=== PATIENT | female | born 1960 | race African-American/Black ===

== ENCOUNTER 2018-06-20 07:05 | Day surgery (SDC) | payer MEDICARE ==
[~2018-06-20] VITALS: Ht 170.2 cm; Wt 94.8 kg
[~2018-06-20 07:05] MED LIST: ALTACE; ALTACE10 MG OR; ASPIRIN EC81 MG PO; ATORVASTATIN CA40 MG PO; BAYER ASA325 MG PO; BAYER ASPIRIN E81 MG PO; CALCIUM1250 MG PO; CARAFATE PO; DIAZEPAM5 MG PO; DIGOXIN0.25 MG PO; FLUOXETINE20 MG PO; HYDROXYCHLOR200 M1 PO; LANOXIN0.25 MG OR; LEXAPRO5 MG OR; LODINE XL400 MG OR; LORTAB5 PO; LOSARTAN/HCT1 TA1 PO; MELOXICAM15 MG PO; METOPROL TAR25 MG PO; NAPROSYN500 MG OR; NEURONTIN300 MG PO; NORCO1 TA1 PO; PRAVASTATIN40 MG PO; PROTONIX40 M2 PO; SIMVASTATIN40 MG OR; SULFASALAZIN500 M1 PO; TOPROL XL OR; TOPROL XL100 MG PO; TOPROL XL50 MG OR; XANAX0.25 MG PO; digoxin
[2018-06-20 09:36] VITALS: BP 126/81
== END 2018-06-20 09:53 | disposition home or self-care (01) ==
LOC: ENDO 07:05 → ORM 09:45 → ENDO 09:53
PROVIDERS: ATTEND Internal Medicine Gastroenterology
PROC: 0DBM8ZX Excision of Descending Colon, Via Natural or Artificial Opening Endoscopic, Diagnostic (ICD-10-PCS; principal; 2018-06-20)
PROC: 0DBL8ZX Excision of Transverse Colon, Via Natural or Artificial Opening Endoscopic, Diagnostic (ICD-10-PCS; 2018-06-20)
PROC: 0DBN8ZX Excision of Sigmoid Colon, Via Natural or Artificial Opening Endoscopic, Diagnostic (ICD-10-PCS; 2018-06-20)
PROC: 0DB78ZX Excision of Stomach, Pylorus, Via Natural or Artificial Opening Endoscopic, Diagnostic (ICD-10-PCS; 2018-06-20)
DX: K57.31 Diverticulosis of large intestine without perforation or abscess with bleeding (principal); D12.4 Benign neoplasm of descending colon; D12.5 Benign neoplasm of sigmoid colon; D12.3 Benign neoplasm of transverse colon; K64.4 Residual hemorrhoidal skin tags; K64.8 Other hemorrhoids; K29.51 Unspecified chronic gastritis with bleeding; K29.81 Duodenitis with bleeding; K21.9 Gastro-esophageal reflux disease without esophagitis; Q40.8 Other specified congenital malformations of upper alimentary tract; I10 Essential (primary) hypertension; I49.9 Cardiac arrhythmia, unspecified; Z79.899 Other long term (current) drug therapy

== ENCOUNTER 2018-07-25 17:53 | Observation (INO) | payer MEDICARE ==
[~2018-07-25] VITALS: Ht 170.2 cm; Wt 92.0 kg
--- NOTE | 2018-07-25 18:08 | NUR ---
PT TO ROOM VIA WHEELCHAIR.
[2018-07-25] MEDS ORDERED: GABAPENTIN100 MG PO (18:18)
[2018-07-25] MEDS ORDERED: LOSARTAN POTASS50 MG PO (18:18)
--- NOTE | 2018-07-25 19:02 | NUR ---
PT RESTING QUIETLY ON STRETCHER, WARM BLANKET GIVEN, CALL LIGHT WITHIN REACH.
[2018-07-25 19:24] LABS: HEMATOCRIT 40.6 % (37.0-47.0); HEMOGLOBIN 13.2 g/dl (12.0-16.0); IMMATURE GRANULOCYTES 0.4 % (0.0-5.0); MEAN CELL VOLUME 85.5 fL CALC (80.0-100.0); MEAN CORPUSCULAR HGB 27.8 pG CALC (26.0-32.0); MEAN CORPUSCULAR HGB CONC 32.5 g/L CALC (32.0-36.0); NEUT# 9.15 thou/uL (2.00-7.15); RED BLOOD COUNT 4.75 mill/uL (4.20-5.60); RED CELL DISTRI WIDTH 14.3 % (11.5-15.5)
[2018-07-25 19:32] LABS: ALBUMIN 4.1 g/dL (3.2-5.0); ALKALINE PHOSPHATASE 126 u/l (38-126); ANION GAP 13 (6-22 (CALC)); BILIRUBIN, TOTAL 0.6 mg/dL (0.0-1.4); BUN 8 mg/dL (7-17); BUN/CREATININE RATIO 11 (12-20 (CALC)); CARBON DIOXIDE 25 mmol/l (22-30); CHLORIDE 107 mmol/l (95-108); CREATININE 0.7 mg/dL (0.5-1.0); GFR > 60 ML/MIN (>=60 (CALC)); GFR FOR AFR.AMER. > 60 ML/MIN (>=60 (CALC)); LIPASE 213 u/l (23-300); POTASSIUM 3.4 mmol/l (3.5-5.1); SGOT/AST 28 u/l (14-36); SODIUM 142 mmol/l (137-146); TOTAL PROTEIN 7.9 g/dL (6.3-8.2)
[2018-07-25 19:35] LABS: URINE BILIRUBIN - DIPSTICK NEGATIVE (NEGATIVE); URINE BLOOD DIPSTICK NEGATIVE (NEGATIVE); URINE CLARITY CLEAR; URINE COLOR YELLOW; URINE GLUCOSE - DIPSTICK NEGATIVE (NEGATIVE); URINE KETONE NEGATIVE (NEGATIVE); URINE LEUK ESTERASE NEGATIVE (NEGATIVE); URINE NITRITE - DIPSTICK NEGATIVE (Negative); URINE PH 5.5 (4.5-8.0); URINE PROTEIN - DIPSTICK NEGATIVE (NEG-TRACE); URINE UROBILINOGEN - DIPSTICK 0.2 E.U./dL (0.2)
--- NOTE | 2018-07-25 20:52 | NUR ---
ADVISED OF CONTINUED WAIT TIME FOR CT SCAN RESULTS. NO VOMITING, NO DIARRHEA SINCE ARRIVAL
--- NOTE | 2018-07-25 21:52 | NUR ---
REPORT GIVEN TO JAMEL FOR CONTINUATION OF CARE
--- NOTE | 2018-07-25 21:56 | NUR ---
PT TO FLOOR PER STRETCHER
--- NOTE | 2018-07-25 22:00 | NUR ---
PT ADMITTED TO FLOOR AT 2200. REPORT FROM SUBHASH GRAY. PT ALERT AND ORIENTED X3. C/O ACHY PAIN IN ABDOMEN. PT AMBULATED TO BATHROOM WITH STAND BY ASSIST HAD SMALL LOOSE BROWN BM AT THIS TIME AND VOIDED WITHOUT DIFFICULTY. EDUCATED PT ON NPO STATUS PT VERBALIZED UNDERSTANDING. IV SITE APPEARS HEALTHY AND IVF INFUSING WITHOUT DIFFICULTY. PT ORIENTED TO ROOM AND CALL LIGHT SYSTEM. ENCOURAGE SAFETY PRECAUTIONS. CALL LIGHT WITHIN REACH. WILL CONTINUE TO MONITOR.
[2018-07-25 22:21] VITALS: BP 174/84
--- NOTE | 2018-07-26 01:20 | NUR ---
ASSISTED PT TO BATHROOM. PT HAD SMALL WATERY BM AND VOIDED 300ML CLEAR YELLOW URINE. PT ASSISTED BACK TO BED. PT C/O NAUSEA PRN IV ZOFRAN ADMINISTERED AT THIS TIME. CALL LIGHT WTIHIN REACH. WILL CONTINUE TO MONITOR.
--- NOTE | 2018-07-26 05:02 | NUR ---
PT RESTING IN BED AT THIS TIME. ASSISTED TO BATHROOM A COUPLE TIMES THROUGHOUT SHIFT. PT VOMITED YELLOW BILE IN EMESIS BASIN X1. PT REMAINS NPO AND HAS ALREADY BEEN MEDICATED WITH PRN ZOFRAN AND MYLANTA. PT HAS CALL LIGHT WITHIN REACH.
[2018-07-26 06:54] LABS: HEMATOCRIT 38.5 % (37.0-47.0); HEMOGLOBIN 12.4 g/dl (12.0-16.0); IMMATURE GRANULOCYTES 0.3 % (0.0-5.0); MEAN CELL VOLUME 85.7 fL CALC (80.0-100.0); MEAN CORPUSCULAR HGB 27.6 pG CALC (26.0-32.0); MEAN CORPUSCULAR HGB CONC 32.2 g/L CALC (32.0-36.0); RED BLOOD COUNT 4.49 mill/uL (4.20-5.60); RED CELL DISTRI WIDTH 14.3 % (11.5-15.5)
[2018-07-26 07:13] LABS: ALBUMIN 3.8 g/dL (3.2-5.0); ALKALINE PHOSPHATASE 106 u/l (38-126); ANION GAP 13 (6-22 (CALC)); BILIRUBIN, TOTAL 0.5 mg/dL (0.0-1.4); BUN 6 mg/dL (7-17); BUN/CREATININE RATIO 9 (12-20 (CALC)); CALCULATED LDLCHOLESTEROL 109 mg/dL (62-129 (CALC)); CARBON DIOXIDE 25 mmol/l (22-30); CHLORIDE 108 mmol/l (95-108); CHOLESTEROL HDL RATIO 3.6 (<4.4 (CALC)); CREATININE 0.7 mg/dL (0.5-1.0); GFR > 60 ML/MIN (>=60 (CALC)); GFR FOR AFR.AMER. > 60 ML/MIN (>=60 (CALC)); HDL CHOLESTEROL 47 mg/dL (>=40); POTASSIUM 3.7 mmol/l (3.5-5.1); SGOT/AST 20 u/l (14-36); SODIUM 142 mmol/l (137-146); TOTAL CHOLESTEROL 170 mg/dl (0-199); TOTAL PROTEIN 7.2 g/dL (6.3-8.2); TOTAL TRIGLYCERIDES 71 mg/dl (30-149); VLDL CHOLESTROL 14 mg/dl (2-49 (CALC))
[2018-07-26 09:30] VITALS: BP 157/78
--- NOTE | 2018-07-26 09:37 | NUR ---
PT RESTING IN BED, NO SIGNS OF DISTRESS NOTED, RESP EVEN AND UNLABORED. PT ALERT AND ORIENTED X3, ASSESSMENT COMPLETED AT THIS TIME. PT IS NPO, DISCUSSED POC, ONLY SIPS OF WATER WITH MEDS. CALL LIGHT IN REACH,CONTINUE TO MONITOR.
--- NOTE | 2018-07-26 09:40 | NUR ---
PT SEEN BY , ORDERS TO START CLEAR LIQ DIET, MEDICATED FOR PAIN WITH DILAUDID. CALL LIGHT IN REACH,CONTINUE TO MONITOR.
--- NOTE | 2018-07-26 15:31 | NUR ---
BP ELEVATED 161/76 HR 73. SINCE AM METOPROLOL HELD DUE TO LOW HR. PT GIVEN METOPROLOL NOW, WILL RECHECK BP. PT RESTING IN BED, IN AGREEMENT. FAMILY AT BEDSIDE. CALL LIGHT IN REACH,CONTINUE TO MONITOR.
[2018-07-26 17:42] VITALS: BP 191/93
--- NOTE | 2018-07-26 18:07 | NUR ---
CALL MADE TO ORDERS FOR HYDRALIZINE 1X NOW.
--- NOTE | 2018-07-26 18:16 | NUR ---
PT MEDICATED FOR PAIN, AWAITING HYDRALAZINE ORDER FOR RN TO GIVE. PT VOICES NO NEEDS OR COMPLAINTS AT THIS TIME.
[2018-07-26 19:27] VITALS: BP 123/57
--- NOTE | 2018-07-26 19:43 | NUR ---
REPORT FROM PRITESH STEVENSON. PT RESTING IN BED WITH EYES CLOSED EASILY AROUSED TO VERBAL STIMULI. PT HAS FAMILY MEMBER AT BEDSIDE. PT DENIES ANY PAIN OR NAUSEA. VS RECHECKED AT THIS TIME 131/62, 77, 97%RA 16 97.8. PT ALERT AND ORIENTED X3. DISCUSSED PLAN OF CARE. ENCOURAGED SAFETY PRECAUTIONS, CALL LIGHT WITHIN REACH. WILL CONTINUE TO MONITOR.
--- NOTE | 2018-07-26 23:06 | NUR ---
PT RESTING IN BED WITH EYES CLOSED. NO S/S OF PAIN OR DISCOMFORT NOTED. IVF INFUSING WITHOUT DIFFICULTY. CALL LIGHT WITHIN REACH.
--- NOTE | 2018-07-27 03:15 | NUR ---
PT ASSISTED TO BATHROOM. PT VOIDED 450 ML CLEAR YELLOW URINE WITHOUT DIFFICULTY. PT AMBULATED BACK TO BED. PT DENIES ANY PAIN OR DISCOMFORT AT THIS TIME. CALL LIGHT WITHIN REACH.
[2018-07-27 04:24] VITALS: BP 139/83
[2018-07-27 05:19] LABS: HEMATOCRIT 38.6 % (37.0-47.0); HEMOGLOBIN 12.3 g/dl (12.0-16.0); IMMATURE GRANULOCYTES 0.5 % (0.0-5.0); MEAN CELL VOLUME 86.7 fL CALC (80.0-100.0); MEAN CORPUSCULAR HGB 27.6 pG CALC (26.0-32.0); MEAN CORPUSCULAR HGB CONC 31.9 g/L CALC (32.0-36.0); NEUT# 7.26 thou/uL (2.00-7.15); RED BLOOD COUNT 4.45 mill/uL (4.20-5.60); RED CELL DISTRI WIDTH 14.3 % (11.5-15.5)
[2018-07-27 05:26] LABS: ALBUMIN 3.4 g/dL (3.2-5.0); ALKALINE PHOSPHATASE 90 u/l (38-126); ANION GAP 10 (6-22 (CALC)); BILIRUBIN, TOTAL 0.4 mg/dL (0.0-1.4); BUN 6 mg/dL (7-17); BUN/CREATININE RATIO 8 (12-20 (CALC)); CARBON DIOXIDE 28 mmol/l (22-30); CHLORIDE 107 mmol/l (95-108); CREATININE 0.7 mg/dL (0.5-1.0); GFR > 60 ML/MIN (>=60 (CALC)); GFR FOR AFR.AMER. > 60 ML/MIN (>=60 (CALC)); POTASSIUM 3.8 mmol/l (3.5-5.1); SGOT/AST 22 u/l (14-36); SODIUM 141 mmol/l (137-146); TOTAL PROTEIN 6.7 g/dL (6.3-8.2)
--- NOTE | 2018-07-27 09:00 | NUR ---
PT RESTING IN BED, NO SIGN OF DISTRESS NOTED, RESP EVEN AND UNLABORED. PT STATES "I DON'T KNOW WHAT YALL GAVE ME BUT MY STOMACH FEELS MUCH BETTER." DISCUSSED POC, ASSESSMENT COMPLETED. CALL LIGHT IN REACH,CONTINUE TO MONITOR.
[2018-07-27 09:06] VITALS: BP 150/88
--- NOTE | 2018-07-27 12:00 | NUR ---
PT RESTING IN BED, NO SIGNS OF DISTRESS NOTED, RESP EVEN AND UNLABORED. PT VOICES NO NEEDS OR COMPLAINTS AT THIS TIME. CALL LIGHT IN REACH,CONTINUE TO MONITOR.
[2018-07-27 16:00] VITALS: BP 155/79
--- NOTE | 2018-07-27 16:15 | NUR ---
PT RESTING IN BED, AT BEDSIDE WATCHING FOOTBALL, NO SIGNS OF DISTRESS NOTED, RESP EVEN AND UNLABORED. CALL LIGHT IN REACH,CONTINUE TO MONITOR.
--- NOTE | 2018-07-27 17:50 | NUR ---
REPORT FROM PRITESH STEVENSON. PT RESTING IN BED AT THIS TIME. DENIES ANY PAIN OR DISCOMFORT. IVF INFUSING WITHOUT DIFFICULTY. DISCUSSED POC. PT DOES NOT VERBALIZE ANY WANTS OR NEEDS AT THIS TIME. CALL LIGHT WITHIN REACH. WILL CONTINUE TO MONITOR.
[2018-07-27 19:48] VITALS: BP 154/75
--- NOTE | 2018-07-27 19:50 | NUR ---
REPORT FROM PRITESH STEVENSON. PT RESTING IN BED. DENIES ANY PAIN OR DISCOMFORT. IVF INFUSING WITHOUT DIFFICULTY. DISCUSSED POC. PT DOES NOT VERBALIZED ANY WANTS OR NEEDS AT THIS TIME. CALL LIGHT WITHIN REACH. WILL CONTINUE TO MONITOR.
--- NOTE | 2018-07-28 00:01 | NUR ---
ADMINISTERED SCHEDULED GABAPENTIN AT THIS TIME. PT DENIES ANY PAIN OR DISCOMFORT. RESPIRATIONS EVEN AND UNLABORED. CALL LIGHT WITHIN REACH.
[2018-07-28 04:35] VITALS: BP 138/61
--- NOTE | 2018-07-28 04:36 | NUR ---
PT RESTING IN BED WITH EYES CLOSED. PT EASILY AROUSED TO VERBAL STIMULI. DENIES ANY PAIN OR DISCOMFORT. IVF INFUSING WITHOUT DIFFICULTY. CALL LIGHT WITHIN REACH.
[2018-07-28 05:35] LABS: HEMATOCRIT 34.7 % (37.0-47.0); HEMOGLOBIN 11.1 g/dl (12.0-16.0); IMMATURE GRANULOCYTES 0.4 % (0.0-5.0); MEAN CORPUSCULAR HGB 27.8 pG CALC (26.0-32.0); NEUT# 4.77 thou/uL (2.00-7.15); RED BLOOD COUNT 3.99 mill/uL (4.20-5.60); RED CELL DISTRI WIDTH 14.4 % (11.5-15.5)
[2018-07-28 06:05] LABS: ANION GAP 9 (6-22 (CALC)); BUN 6 mg/dL (7-17); BUN/CREATININE RATIO 8 (12-20 (CALC)); CARBON DIOXIDE 26 mmol/l (22-30); CHLORIDE 110 mmol/l (95-108); CREATININE 0.7 mg/dL (0.5-1.0); GFR > 60 ML/MIN (>=60 (CALC)); GFR FOR AFR.AMER. > 60 ML/MIN (>=60 (CALC)); POTASSIUM 3.2 mmol/l (3.5-5.1); SODIUM 142 mmol/l (137-146)
--- NOTE | 2018-07-28 07:10 | NUR ---
REPORT RECEIVED FROM ISAAC MCCULLOUGH;PT RESTING IN SEMI FOWLERS POSITION;INTRODUCED SELF TO PT AND POC DISCUSSED;PT REPORTS INCREASING HEADACHE PAIN, MD TO BE NOTIFIED;RESPIRATIONS EVEN AND UNLABORED ON RA;PT DENIES ANY CURRENT NEEDS AND IS INSTRUCTED TO CALL FOR ASSISTANCE IF NEEDED;FALL PRECAUTIONS IN PLACE WITH CALL LIGHT IN REACH;WILL CONTINUE TO MONITOR
[2018-07-28 07:34] VITALS: BP 162/87
--- NOTE | 2018-07-28 08:09 | NUR ---
AT BEDSIDE DISCUSSING POC.
--- NOTE | 2018-07-28 09:20 | NUR ---
PT RESTING IN SEMI FOWLERS POSITION;ASSESSMENT COMPLETED;RESPIRATIONS EVEN AND UNLABORED ON RA,CLEAR LUNG SOUNDS NOTED;ABDOMEN SOFT ON PALPATION AND ACTIVE IN ALL 4 QUADRANTS, TENDERNESS NOTED;SMALL FREQUENT BM AT TIMES;#20G TO LAC FLUSHED AND PATENT, IV FLUIDS D/C PER ORDER;PT REPORTS HEADACHE PAIN RATING 9/10 ON THE PAIN SCALE AND REQUESTS PAIN MEDICATION;PT MEDICATED WITH PRN TYLENOL 650MG PO,WILL MONITOR FOR EFFECTIVENESS;PT DENIES ANY OTHER CURRENT NEEDS AND IS INSTRUCTED TO CALL FOR ASSISTANCE IF NEEDED;CALL LIGHT IN REACH;WILL CONTINUE TO MONITOR
--- NOTE | 2018-07-28 11:30 | NUR ---
PT RESTING AT BEDSIDE;RESPIRATIONS EVEN AND UNLABORED ON RA;PT DENIES ANY CURRENT PAIN OR NEEDS;IV SITE TO LAC REMAINS PATENT;ASSESSMENT UNCHANGED AT THIS TIME;ENCOURAGED PT TO CALL FOR ASSISTANCE IF NEEDED;CALL LIGHT IN REACH;WILL CONTINUE TO MONITOR
[2018-07-28 15:30] VITALS: BP 163/82
--- NOTE | 2018-07-28 16:30 | NUR ---
PT RESTING IN BED WITH FAMILY AT BEDSIDE;RESPIRATIONS EVEN AND UNLABORED ON RA;IV SITE TO LAC PATENT;FRESH WATER AND ICE PROVIDED PER REQUEST;PT ENCOURAGED TO CALL FOR ASSISTANCE IF NEEDED;FALL PRECAUTIONS IN PLACE WITH CALL LIGHT IN REACH;WILL CONTINUE TO MONITOR
[2018-07-28 19:53] VITALS: BP 143/80
--- NOTE | 2018-07-28 21:44 | NUR ---
PT IS RESTING IN BED, AWAKE, WATCHING TV, AMBULATED TO BRP WITH NO ASSISTANCE, STEADY GAIT NOTED, NO DISTRESS NOTED, RESP ARE EVEN AND UNLABORED, WILL MONITOR CLOSELY. CALL ANAND AT REACH, REPORTS NO PAIN OR NEEDS AT THIS TIME.
--- NOTE | 2018-07-28 23:00 | NUR ---
LEVAQUIN INFUSING WITHOUT DIFFICULTY TO PATEN IV SITE, WILL CONTINUE TO MONITOR, NO NEEDS OR PAIN REPORTED, PT AWAKE, WATCHING TV.
--- NOTE | 2018-07-29 00:15 | NUR ---
PT DENIES ANY PAIN OR NEEDS, LEVAQUIN INFUSING WITHOUT DIFFICULTY, NO S/S OF INFILTRATION, WILL CONTINUE TO MONITOR.
--- NOTE | 2018-07-29 04:15 | NUR ---
PT IS RESTING IN BED WITH EYES CLOSED, VOICES NO PAIN OR NEEDS, RESP ARE EVEN AND UNLABORED, WILL FOLLOW UP WITH FREQUENTLY ROUNDINGS, CALL ANAND AT REACH, SAFETY MEASURES IN PLACE.
[2018-07-29 04:20] VITALS: BP 140/76
[2018-07-29 06:13] LABS: HEMATOCRIT 34.7 % (37.0-47.0); HEMOGLOBIN 11.1 g/dl (12.0-16.0); IMMATURE GRANULOCYTES 0.3 % (0.0-5.0); MEAN CELL VOLUME 86.8 fL CALC (80.0-100.0); MEAN CORPUSCULAR HGB 27.8 pG CALC (26.0-32.0); NEUT# 4.85 thou/uL (2.00-7.15); RED CELL DISTRI WIDTH 14.4 % (11.5-15.5)
[2018-07-29 06:30] LABS: ANION GAP 11 (6-22 (CALC)); BUN 9 mg/dL (7-17); BUN/CREATININE RATIO 11 (12-20 (CALC)); CARBON DIOXIDE 28 mmol/l (22-30); CHLORIDE 107 mmol/l (95-108); CREATININE 0.8 mg/dL (0.5-1.0); GFR > 60 ML/MIN (>=60 (CALC)); GFR FOR AFR.AMER. > 60 ML/MIN (>=60 (CALC)); POTASSIUM 3.6 mmol/l (3.5-5.1); SODIUM 143 mmol/l (137-146)
--- NOTE | 2018-07-29 07:05 | NUR ---
REPORT RECEIVED FROM ISAAC QUIGLEY;PT RESTING AT BEDSIDE;INTRODUCED SELF TO PT AND POC DISCUSSED;PT DENIES ANY CURRENT PAIN OR DISCOMFORTS;RESPIRATIONS EVEN AND UNLABORED ON RA;PT ENCOURAGED TO CALL FOR ASSISTANCE IF NEEDED;FALL PRECAUTIONS IN PLACE WITH CALL LIGHT IN REACH;WILL CONTINUE TO MONITOR
--- NOTE | 2018-07-29 07:20 | NUR ---
PT AMBULATED ALL THREE HALLWAYS WITH STAND BY ASSIST AND STEADY GAIT.
--- NOTE | 2018-07-29 07:45 | NUR ---
PT RESTING IN BED;VS OBTAINED AND ASSESSMENT COMPLETED;PT DENIES ANY CURRENT PAIN OR DISCOMFORTS;RESPIRATIONS EVEN AND UNLABORED ON RA,CLEAR LUNG SOUNDS NOTED;ABDOMEN DISTENDED/SOFT ON PALPATION AND ACTIVE IN ALL 4 QUADRANTS;WEAK PEDAL PULSES;SKIN INTACT;#20G TO LAC FLUSHED AND PATENT,SITE APPEARS HEALTHY;PT DENIES ANY CURRENT NEEDS AND IS INSTRUCTED TO CALL FOR ASSISTANCE IF NEEDED;CALL LIGHT IN REACH;WILL CONTINUE TO MONITOR
[2018-07-29 07:46] VITALS: BP 163/79
--- NOTE | 2018-07-29 08:00 | NUR ---
AT BEDSIDE DISCUSSING POC INCLUDING DISCHARGE PLAN.
[2018-07-29] MEDS ORDERED: LEVAQUIN750 MG PO (08:22)
[2018-07-29 08:39] VITALS: BP 163/79
--- NOTE | 2018-07-29 10:40 | NUR ---
ALL DISCHARGE INSTRUCTIONS DISCUSSED AT THIS TIME;PT EDUCATED ON PRESCRIPTION;ENCOURAGED TO FOLLOW UP WITH IN 1 WEEKS TIME;ALL QUESTIONS ANSWERED AND PT VERBALIZES UNDERSTANDING;IV SITE REMOVED WITH CATHETER INTACT;PT DENIES ANY ADDITIONAL NEEDS;WHEELCHAIR TO BE PROVIDED FOR DISCHARGE;AWAITING SPOUSE FOR TRANSPORTATION HOME.
--- NOTE | 2018-07-29 11:00 | NUR ---
Discharge instructions given. Patient verbalizes understanding of same. Discharged in stable condition via Wheelchair to Home with spouse. All belongings sent with pt.
== END 2018-07-29 10:59 | disposition home or self-care (01) ==
LOC: ED 17:53 → ED-I 21:03 → ED 21:15 → MS2 21:16
PROVIDERS: Family Medicine; ADMIT Internal Medicine Geriatric Medicine; ATTEND Internal Medicine Geriatric Medicine
DX: K50.10 Crohn's disease of large intestine without complications (principal); K57.30 Diverticulosis of large intestine without perforation or abscess without bleeding; I10 Essential (primary) hypertension; E78.5 Hyperlipidemia, unspecified; K21.9 Gastro-esophageal reflux disease without esophagitis; I48.91 Unspecified atrial fibrillation; G62.9 Polyneuropathy, unspecified; F32.9 Major depressive disorder, single episode, unspecified; M19.90 Unspecified osteoarthritis, unspecified site; Z86.19 Personal history of other infectious and parasitic diseases
CPT/HCPCS: G0328; J1956; Q9967; S0164

== ENCOUNTER 2020-04-26 12:08 | Emergency (ER) | payer MEDICARE ==
[~2020-04-26] VITALS: Ht 170.2 cm; Wt 91.3 kg
[~2020-04-26 12:08] MED LIST changes: +GABAPENTIN100 MG PO; +LEVAQUIN750 MG PO; +LOSARTAN POTASS50 MG PO
[2020-04-26 12:41] LABS: IMMATURE GRANULOCYTES 0.7 % (0.0-5.0); MEAN CELL VOLUME 87.7 fL CALC (80.0-100.0); MEAN CORPUSCULAR HGB 28.1 pG CALC (26.0-32.0); MEAN CORPUSCULAR HGB CONC 32.1 g/dL CAL (32.0-36.0); NEUT# 6.64 thou/uL (2.00-7.15); RED BLOOD COUNT 4.87 mill/uL (4.20-5.60); RED CELL DISTRI WIDTH 13.4 % (11.5-15.5)
[2020-04-26 12:42] LABS: HEMATOCRIT 42.7 % (37.0-47.0); HEMOGLOBIN 13.7 g/dl (12.0-16.0)
[2020-04-26 12:57] LABS: URINE BILIRUBIN - DIPSTICK NEGATIVE (NEGATIVE); URINE BLOOD DIPSTICK NEGATIVE (NEGATIVE); URINE COLOR YELLOW; URINE GLUCOSE - DIPSTICK NEGATIVE (NEGATIVE); URINE KETONE NEGATIVE (NEGATIVE); URINE LEUK ESTERASE NEGATIVE (NEGATIVE); URINE NITRITE - DIPSTICK NEGATIVE (Negative); URINE PH 7.5 (4.5-8.0); URINE PROTEIN - DIPSTICK 30 mg/dL (NEG-TRACE); URINE SPECIFIC GRAVITY 1.015; URINE UROBILINOGEN - DIPSTICK 0.2 E.U./dL (0.2)
[2020-04-26 12:58] LABS: URINE EPITHELIAL CELLS FEW EPI/hpf (0-FEW); URINE MUCUS MODERATE hpf (NONE-FEW)
[2020-04-26 13:10] LABS: ANION GAP 15 (6-22 (CALC)); BILIRUBIN, TOTAL 0.5 mg/dL (0.0-1.4); BUN 6 mg/dL (7-17); BUN/CREATININE RATIO 9 (12-20 (CALC)); CARBON DIOXIDE 26 mmol/l (22-30); CHLORIDE 104 mmol/l (95-108); CREATININE 0.6 mg/dL (0.5-1.0); GFR > 60 ML/MIN (>=60 (CALC)); GFR FOR AFR.AMER. > 60 ML/MIN (>=60 (CALC)); LIPASE 183 u/l (23-300); POTASSIUM 3.7 mmol/l (3.5-5.1); SGOT/AST 22 u/l (14-36); SODIUM 141 mmol/l (137-146)
[2020-04-26 13:20] LABS: ALKALINE PHOSPHATASE 137 u/l (38-126); TOTAL PROTEIN 8.8 g/dL (6.3-8.2)
[2020-04-26] MEDS ORDERED: FLEXERIL5 M1 PO (13:50)
[2020-04-26] MEDS ORDERED: NAPROXEN375 MG PO (13:50)
[2020-04-26] MEDS ORDERED: ZOFRAN4 MG/TAB PO (13:50)
[2020-04-26] MEDS ORDERED: PEPCID20 MG PO (13:50)
[2020-04-26 14:10] VITALS: BP 169/77
== END 2020-04-26 14:10 | disposition home or self-care (01) ==
LOC: ED 12:08
DX: S39.012A Strain of muscle, fascia and tendon of lower back, initial encounter (principal); R11.2 Nausea with vomiting, unspecified; I10 Essential (primary) hypertension; I48.91 Unspecified atrial fibrillation; G62.9 Polyneuropathy, unspecified; X58.XXXA Exposure to other specified factors, initial encounter